=== PATIENT | female | born 1985 | race Caucasian/White ===

== ENCOUNTER → 2016-07-24 | Outpatient (CLI) | payer OTHER | LOC: FIMAGING 10:34 | PROVIDERS: ATTEND Obstetrics & Gynecology | DX: O09.813 Supervision of pregnancy resulting from assisted reproductive technology, third trimester (principal); O36.63X0 Maternal care for excessive fetal growth, third trimester, not applicable or unspecified; Z3A.33 33 weeks gestation of pregnancy ==

== ENCOUNTER → 2016-08-21 | Outpatient (CLI) | payer OTHER | LOC: FIMAGING 12:59 | PROVIDERS: ATTEND Obstetrics & Gynecology | DX: O09.813 Supervision of pregnancy resulting from assisted reproductive technology, third trimester (principal); O36.63X0 Maternal care for excessive fetal growth, third trimester, not applicable or unspecified; Z3A.37 37 weeks gestation of pregnancy ==

== ENCOUNTER 2016-09-05 09:57 | Inpatient (IN) | payer OTHER ==
[2016-09-05] MEDS ORDERED: ceFAZolin 2 GM/DEXTROSE 100 ML IV ONE (10:32)
[2016-09-05] MEDS ORDERED: CITRIC ACID/SODIUM CITRATE 30 ML UDCUP PO ONE (10:32)
[2016-09-05] MEDS ORDERED: LR 500 ML IV ONE (10:32)
[2016-09-05] MEDS ORDERED: OXYTOCIN 10 UNIT/ML VIAL ONE (10:55)
[2016-09-05] MEDS ORDERED: MISOPROSTOL 200 MCG TAB ONE (10:55)
[2016-09-05] MEDS ORDERED: OXYTOCIN/RINGERS LACTATE 20 UNIT/1,000 ML BAG IV ONE (10:56)
[2016-09-05 11:00] LABS: % IMMATURE GRANULYOCYTES 0.4 % (0.0-1.1); ABSOLUTE IMMATURE GRANULOCYTES 0.04 10^3/uL (0.00-0.10); ADD DIFF? NO; ADD MORPH? NO; ADD SCAN? NO; ATYPICAL LYMPHOCYTE FLAG 10 (0-99); FRAGMENT RBC FLAG 0 (0-99); HEMATOCRIT 38.3 % (38.0-47.0); LEFT SHIFT FLG 0 (0-99); LIPEMIA HEMOLYSIS FLAG 90 (0-99); MEAN CELL HEMOGLOBIN 29.8 pg (27.9-34.1); MEAN CELL HEMOGLOBIN CONCENTR. 33.9 g/dL (32.4-36.7); MEAN CELL VOLUME 87.8 fL (81.5-99.8); MEAN PLATELET VOLUME 9.4 fL (8.7-11.7); PLATELET CLUMPS FLAG 10 (0-99); PLATELET COUNT 275 10^3/uL (150-400); RED BLOOD CELL COUNT 4.36 10^6/uL (4.18-5.33); RED CELL DISTRIBUTION WIDTH 13.4 % (11.5-15.2)
[2016-09-05] MEDS ORDERED: LR 1,000 ML IV SCH (11:00)
[2016-09-05] MEDS ORDERED: fentaNYL 100 MCG/2 ML INJ ONE (11:39)
[2016-09-05] MEDS ORDERED: morphINE PF 5 MG/10 ML INJ ONE (11:39)
[2016-09-05] MEDS ORDERED: BUPIVACAINE/DEXTROSE 7.5MG/ML 2 ML SPINAL AMP SP ONE (11:40)
[2016-09-05] MEDS ORDERED: PHENYLEPHRINE 10 MG/ML SDV ONE (11:40)
[2016-09-05] MEDS ORDERED: OXYTOCIN 100 UNITS/10 ML VIAL ONE (11:40)
[2016-09-05] MEDS ORDERED: ONDANSETRON 4 MG/2 ML VIAL ONE (11:40)
[2016-09-05] MEDS ORDERED: SIMETHICONE 80 MG TAB CHEW PO PRN (11:43)
[2016-09-05] MEDS ORDERED: HYDROCODONE/APAP 5/325 TAB PO PRN ×2 (11:43→13:45)
[2016-09-05] MEDS ORDERED: PROMETHAZINE HCL 25 MG/ML INJ IVP PRN (11:43)
[2016-09-05] MEDS ORDERED: METHYLERGONOVINE MAL 0.2 MG/ML INJ IM ONE (12:48)
--- NOTE | 2016-09-05 13:22 | OBPROC ---
- Delivery Pre-op Diagnoses: macrosomia Post-op Diagnoses: macrosomia Procedure: Primary Surgeon: Julieta Gambino Software Quality Specialist: Michelle Hearn Anesthesiologist: Jersey Salcido Chain Maker Machine/CUPOLA PATCHER: Clara Levy Anesthesia: Spinal Complications: Nucal Cord Findings: nuchal cord x 3 IV Fluid (ml): 2,000 EBL: 800 - Info A Delivery Date: 09/05/16 Delivery Time: 13:06 Sex of : Male Score (1 Min): 8 Score (5 Min): 9
[2016-09-05] MEDS ORDERED: MEPERIDINE 25 MG/ML SYR IVP PRN (13:45)
[2016-09-05] MEDS ORDERED: PHENYLEPHRINE HCL 100 MCG/ML SYR IVP PRN (13:45)
[2016-09-05] MEDS ORDERED: HYDROmorphONE/DILAUDID 1 MG/ML SYR IVP PRN (13:45)
[2016-09-05] MEDS ORDERED: ONDANSETRON 4 MG/2 ML VIAL IVP PRN ×2 (13:45)
[2016-09-05] MEDS ORDERED: OXYCODONE/APAP 5/325 TAB PO PRN (13:45)
[2016-09-05] MEDS ORDERED: NALOXONE HCL 0.4 MG/ML INJ IVP PRN ×2 (13:45)
--- NOTE | 2016-09-05 13:48 | POSTANESTH ---
Post Anesthetic Evaluation Cardiovascular Status: Normal, Stable Respiratory Status: Normal, Stable Level of Consciousness/Mental Status: Can Participate in Eval Pain Control: Adequate, Prn Tx Ordered Nausea/Vomiting Control: Adequate, Prn Tx Ordered Complications Possibly Related to Anesthesia: None Noted
[2016-09-05] MEDS ORDERED: KETOROLAC 30 MG/1 ML SDV ONE (14:56)
[2016-09-05] MEDS: KETOROLAC 30 MG/1 ML SDV IVP SCH ×2 (14:58→19:18)
--- NOTE | 2016-09-05 17:51 | GOP ---
[f rep st] OPERATIVE REPORT DATE OF OPERATION: 09/05/2016 SURGEON: Julieta Del Real MD HIP HOP DANCER: Michelle Hearn CNM. ANESTHESIA: Spinal. PREOPERATIVE DIAGNOSIS: Intrauterine at 39-1/7 weeks' gestation with macrosomia. POSTOPERATIVE DIAGNOSIS: Intrauterine at 39-1/7 weeks' gestation with macrosomia. PROCEDURE PERFORMED: Primary low transverse section. FINDINGS: Viable male , Apgars 8 and 9. Nuchal cord x3. Normal uterus, fallopian tubes, and ovaries. SPECIMENS: None. ESTIMATED BLOOD LOSS: 800 mL. INDICATIONS: The patient is a 30-year-old, G1, P0, female who is at 39-1/7 weeks gestation by IVF dating, who had an ultrasound which indicated an estimated weight was going to be at over 5000 g at her due date and recommendation for primary section for prevention of shoulder dystocia which the patient agreed to. DESCRIPTION OF PROCEDURE: The patient was taken the operating room where she was prepped and draped in a normal sterile fashion in the dorsal supine position with a leftward tilt. A surgical time-out was performed verifying the patient's name, date of , planned procedure and site. The patient received 2 g of Ancef preoperatively. A Pfannenstiel skin incision was made with a scalpel and carried through to the underlying fascia. The fascia was incised in the midline and extended laterally. The superior aspect of the fascia was grasped with Luz clamps. The rectus muscles were dissected off bluntly and with the Bovie cautery. The inferior aspect of the fascia was grasped with Luz clamps. The rectus muscles were dissected off bluntly and with the Bovie cautery. The peritoneum was identified and entered in bluntly. The peritoneum was divided. The vesicouterine peritoneum was incised with the Metzenbaum scissors, and the bladder flap was created digitally. The bladder blade was replaced. The uterus was incised and extended laterally. The was delivered. The cord was clamped and cut. Cord blood was obtained. The infant was handed to the nurse practitioner. The placenta was delivered spontaneously. The uterus was exteriorized and cleared of all clots and debris. The uterine incision was reapproximated with 0 Monocryl in a running, locked fashion in 2 layers. The uterus was returned to the abdomen, and the gutters were cleared of all clots and debris. The uterine incision was reinspected and noted to be hemostatic. The subfascial spaces were inspected and noted to be hemostatic. The fascia was reapproximated with 0 Vicryl in a running fashion. The subcutaneous tissue was irrigated and closed with 3-0 Vicryl, and the skin was closed with 4-0 Monocryl. All counts were correct x2. COMPLICATIONS: None. OUTCOME: Stable to recovery room. /[id number]/MODL MTDD
[2016-09-06] MEDS: KETOROLAC 30 MG/1 ML SDV IVP SCH ×2 (01:33→09:06)
[2016-09-06] MEDS ORDERED: KETOROLAC 30 MG/1 ML SDV IVP ONE (08:30)
[2016-09-06] MEDS: DOCUSATE SODIUM 100 MG CAP PO PRN ×2 (09:06→21:17)
--- NOTE | 2016-09-06 09:27 | SOAPPROG ---
SOAP Progress Note Assessment/Plan: Assessment: POD#1 s/p PLTCS for macrosomia Recovering appropriately Rh pos Plan: Routine post op care D/C pate Ambulation Oral pain meds Expect home on POD#3 09/06/16 09:26 Subjective: Feels great. Did get some sleep. Working on latch. Sore but overall pain controlled. Hasn't ambulated yet. No significant bleeding. Tolerating regular diet Objective: Vital Signs Temp Pulse Resp BP Pulse Ox 36.8 C 81 16 98/56 L 96 09/06/16 05:15 09/06/16 05:15 09/06/16 05:15 09/06/16 05:15 09/06/16 05:15 Laboratory Results 09/06/16 05:05 09/05/16 09/06/16 09/07/16 05:59 05:59 05:59 Intake Total 3100 1892 Output Total 1875 Balance 1225 1892 Gen: NAD Resp: unlabored CV: RRR Abd: soft, non distended, appropriately tender Incision: bandage c/d/i Ext: no edema ICD10 Worksheet Patient Problems: Problems Problem Status Onset macrosomia in third trimester Acute
[2016-09-06] MEDS: IBUPROFEN 600 MG TAB PO PRN ×2 (15:18→21:18)
[2016-09-07] MEDS: IBUPROFEN 600 MG TAB PO PRN ×3 (03:19→17:17)
[2016-09-07 05:38] VITALS: RESP 16
--- NOTE | 2016-09-07 08:26 | SOAPPROG ---
SOAP Progress Note Assessment/Plan: Assessment: 30 yo s/p ltcs for suspected macrosomia, pod 2, doing well. Plan: 09/07/16 08:25 Rh+. Routine postop care. Home tomorrow. Subjective: 30 yo s/p ltcs for suspected macrosomia, pod 2, doing well, ambulating, voiding, tolerating po intake. Objective: Vital Signs Temp Pulse Resp BP Pulse Ox 36.4 C 83 16 111/69 96 09/07/16 05:10 09/07/16 05:10 09/07/16 05:10 09/07/16 05:10 09/07/16 05:10 Laboratory Results 09/06/16 05:05 09/06/16 09/07/16 09/08/16 05:59 05:59 05:59 Intake Total 3100 1892 Output Total 4143 1251 Balance 1225 -783 Physical Exam - Physical Exam General Appearance: no apparent distress Respiratory: lungs clear Cardiac/Chest: regular rate, rhythm Abdomen: non-tender Skin: warm/dry Extremities: non-tender Neuro/Psych: normal mood/affect ICD10 Worksheet Patient Problems: Problems Problem Status Onset macrosomia in third trimester Acute
[2016-09-07] MEDS: DOCUSATE SODIUM 100 MG CAP PO PRN (09:08)
[2016-09-08] MEDS: IBUPROFEN 600 MG TAB PO PRN ×2 (04:12→14:43)
[2016-09-08] MEDS: DOCUSATE SODIUM 100 MG CAP PO PRN ×2 (04:12→14:44)
[2016-09-08 10:41] VITALS: BP 112/78; PULSE 70; TEMP 97.3; O2SAT 95
--- NOTE | 2016-09-08 11:05 | SOAPPROG ---
SOAP Progress Note Assessment/Plan: Assessment: 30 yo s/p ltcs for suspected macrosomia, pod 3, doing well, ready for discharge home Plan: Discharge home RH+/RI RX for motrin and norco given F/U in 2 weeks or sooner prn 09/08/16 11:04 Objective: Vital Signs Temp Pulse Resp BP Pulse Ox 36.3 C 70 16 112/78 95 09/08/16 09:00 09/08/16 09:00 09/08/16 09:00 09/08/16 09:00 09/08/16 09:00 Laboratory Results 09/06/16 05:05 09/07/16 09/08/16 09/09/16 05:59 05:59 05:59 Intake Total 1892 Output Total 2675 Balance -783 Physical Exam - Physical Exam General Appearance: WD/WN, alert, no apparent distress Respiratory: lungs clear Cardiac/Chest: regular rate, rhythm Abdomen: normal bowel sounds, non-tender, soft, other (incision c/d/i, steri strips intact, fundus firm) Pelvic Exam: deferred ICD10 Worksheet Patient Problems: Problems Problem Status Onset macrosomia in third trimester Acute
== END 2016-09-08 16:47 | disposition home or self-care (01) | DRG 766 ==
LOC: FLD 09:57 → FOB 14:34
PROVIDERS: ADMIT Obstetrics & Gynecology; ATTEND Obstetrics & Gynecology
PROC: 10D00Z1 Extraction of Products of Conception, Low, Open Approach (ICD-10-PCS; principal; 2016-09-05)
DX: O36.63X0 Maternal care for excessive fetal growth, third trimester, not applicable or unspecified (principal); O69.89X0 Labor and delivery complicated by other cord complications, not applicable or unspecified; Z3A.39 39 weeks gestation of pregnancy; Z37.0 Single live birth
CPT/HCPCS: J0690; J1885; J2210; J2274; J2370; J2405; J2550; J2590; J3010

== ENCOUNTER → 2016-09-14 | Outpatient (CLI) | payer OTHER | LOC: FLACT 13:19 | PROVIDERS: ATTEND Obstetrics & Gynecology | DX: Z39.1 Encounter for care and examination of lactating mother (principal) | CPT/HCPCS: G0463 ==

== ENCOUNTER → 2016-09-18 | Outpatient (CLI) | payer OTHER | LOC: FLACT 13:08 | PROVIDERS: ATTEND Obstetrics & Gynecology | DX: O92.79 Other disorders of lactation (principal) | CPT/HCPCS: G0463 ==